=== PATIENT | male | born 1965 | race Caucasian/White ===

== ENCOUNTER 2020-08-06 06:01 | Inpatient (IN) | payer MEDICAID ==
[2020-08-06] VITALS (14 sets, daily range): BP systolic 121–183; BP diastolic 69–98
[~2020-08-06] VITALS: Ht 188 cm; Wt 85.0 kg
[2020-08-06] MEDS ORDERED: morphine 4 MG/ML inj SYRINge IV ONE (06:10)
[2020-08-06] MEDS ORDERED: ondansetron/PF 4mg/2ml inj IV ONE (06:10)
--- NOTE | 2020-08-06 06:28 | NUR ---
patient received on bed awake,awaiting for ed MD to see patient.
--- NOTE | 2020-08-06 06:37 | NUR ---
Dr. Quiros at bedside.
[2020-08-06] MEDS ORDERED: hyDROXYzine 50 mg/ml injection ***IM only IM ONE (06:50)
[2020-08-06] MEDS ORDERED: normal saline 1000ml 1,000 ML IV ONE (06:50)
[2020-08-06] MEDS ORDERED: OMEP20TA23 PO (07:17)
[2020-08-06 07:53] LABS: HEMATOCRIT 38.2 % (42.0-52.0); MEAN CORPUSCULAR VOLUME 93.3 FL (78-98); MEAN PLATELET VOLUME 7.9 FL (7.4-10.4)
[2020-08-06 07:54] LABS: MEAN CORPUSCULAR HEMOGLOBIN 31.6 PG (27.0-31.0); MEAN CORPUSCULAR HGB CONC 33.9 g/dL (33.0-36.5); PLATELET COUNT 234 X10'3 (140-440); RED CELL DISTRIBUTION WIDTH 16.5 % (11.5-14.5); WHITE BLOOD COUNT 5.8 X10'3 (4.5-11.0)
[2020-08-06 08:11] LABS: ALANINE AMINOTRANSFERASE 71 U/L (12-78); ALBUMIN 2.5 G/DL (3.4-5.0); ALKALINE PHOSPHATASE 314 IU/L (46-116); ANION GAP 7 (8-16); BILIRUBIN,TOTAL 15.7 MG/DL (0.1-1.0); BLOOD UREA NITROGEN 11 MG/DL (7-18); CALCIUM 8.7 MG/DL (8.5-10.1); CHLORIDE 102 MMOL/L (99-107); LIPASE 105 U/L (73-393); MAGNESIUM 1.8 MG/DL (1.5-2.4); SODIUM 135 MMOL/L (135-145); TOTAL CARBON DIOXIDE 25.8 MMOL/L (24-32)
[2020-08-06 08:26] LABS: ALBUMIN/GLOBULIN RATIO 0.7 (1.1-1.5); CREATININE 0.58 MG/DL (0.60-1.10); GLUCOSE 104 MG/DL (70-104); POTASSIUM 3.5 MMOL/L (3.5-5.1); eGFR > 90 ML/MIN
[2020-08-06 08:36] LABS: ASPARTATE AMINO TRANSFERASE 72 U/L (10-37)
--- NOTE | 2020-08-06 08:54 | NUR ---
patient's hr down to 40's when asleep,Dr. Cook made aware.No new order at this time.
[2020-08-06 09:06] LABS: TOTAL CELLS COUNTED 100
[2020-08-06 09:07] LABS: ANISOCYTOSIS 1+; PLATELET ESTIMATE NORMAL
[2020-08-06] MEDS ORDERED: HYDROcodone/acetaminophen 10/325mg tab PO PRN (09:10)
[2020-08-06] MEDS ORDERED: HYDROcodone/acetaminophen 5mg/325mg tablet PO PRN (09:10)
[2020-08-06] MEDS ORDERED: magnesium 4gm in 100ml NS 100 ML IV PRN (09:10)
[2020-08-06] MEDS ORDERED: morphine 2 MG/ML inj. syringe IV PRN (09:10)
[2020-08-06] MEDS ORDERED: magnesium hydroxide 30ml (MOM) UD suspension PO PRN (09:10)
[2020-08-06] MEDS ORDERED: potassium Cl 20 mEq SR tablet PO PRN ×2 (09:10)
[2020-08-06] MEDS ORDERED: metoclopramide 5 mg/ml inj IV PRN (09:10)
[2020-08-06] MEDS ORDERED: diphenhydrAMINE 25mg capsule PO PRN (09:10)
[2020-08-06] MEDS ORDERED: mag hydrox/Alum hydrox/simeth 30ml oral suspension PO PRN (09:10)
[2020-08-06] MEDS ORDERED: bisacodyl 10mg suppository rectal RC PRN (09:10)
[2020-08-06] MEDS ORDERED: acetaminophen 650mg rectal suppository RC PRN (09:10)
[2020-08-06] MEDS: normal saline 1000ml 1,000 ML IV SCH ×2 (09:10→15:59)
[2020-08-06] MEDS ORDERED: potassium CL 10mEq/100ml bag 100 ML IV PRN ×2 (09:10)
[2020-08-06] MEDS ORDERED: magnesium Cl slow-release 64mg tablet PO PRN (09:10)
[2020-08-06] MEDS ORDERED: ondansetron/PF 4mg/2ml inj IV PRN (09:10)
[2020-08-06] MEDS ORDERED: magnesium 2GM in 50ml NS 50 ML IV PRN (09:10)
[2020-08-06] MEDS ORDERED: acetaminophen 325mg tablet PO PRN ×2 (09:10)
[2020-08-06] MEDS: pantoprazole 40 MG vial IV SCH (09:32)
[2020-08-06 09:53] LABS: CLARITY,URINE SLIGHTLY CLOUDY (Clear); COLOR,URINE AMBER (Yellow); GLUCOSE, URINE 100 mg/dl (Neg); KETONES,URINE TRACE mg/dl (Neg); LEUKOCYTE ESTERASE ,URINE NEGATIVE (Neg); NITRITES, URINE NEGATIVE (Neg); OCCULT BLOOD,URINE NEGATIVE (Neg); PH,URINE 5.5 (4.8-8.0); PROTEIN,URINE 30 mg/dl (Neg)
[2020-08-06 09:58] LABS: UA COLLECTION TYPE CLN CATCH MIDSTREAM
--- NOTE | 2020-08-06 10:00 | NUR ---
Patient in room [facility]. I have received report from DAYSI Swann in ER and had the opportunity to ask questions and assume patient care.
[2020-08-06 10:15] LABS: CELLULAR CAST 0-4 /LPF (NEGATIVE); MUCUS STRANDS MODERATE /LPF (Neg); SQUAMOUS EPITHELIAL CELL,UR FEW /LPF (FEW)
[2020-08-06 10:16] LABS: BACTERIA,URINE 2+ /HPF (Neg); RBC,URINE 0-2 /HPF (0-2); WBC,URINE 0-4 /HPF (0-4)
[2020-08-06] MEDS: morphine 2 MG/ML inj. syringe IV PRN ×2 (12:16→19:53)
--- NOTE | 2020-08-06 16:09 | NUR ---
Student documentation: I have reviewed all interventions, assessments performed and documented by from [facility]. Student Medication Administration: For medications-passed in the time frame of 1200 to 1800, all medication were reviewed, dispensed, administered and documented per hospital policy by from [facility]. Addendum: 08/06/20 at 1610 by Hiral GEORGE RN Student documentation: I have reviewed all interventions, assessments performed and documented by Fabián BLACKMAN from [facility]. Student Medication Administration: For medications-passed in the time frame of 1200 to 1800, all medication were reviewed, dispensed, administered and documented per hospital policy by Fabián BLACKMAN from [facility].
[2020-08-06] MEDS ORDERED: MIDAZolam 5mg/5ml vial ONE (16:10)
[2020-08-06] MEDS ORDERED: iohexol 300 MG/1 ML 50ml polymer ONE (16:10)
[2020-08-06] MEDS ORDERED: fentaNYL/PF 50MCG/1 ML 2ML syringe ONE (16:10)
[2020-08-06] MEDS ORDERED: LIDOcaine Viscous 15ml cup ONE (16:10)
[2020-08-06] MEDS ORDERED: levoFLOXACIN-Levaquin 500mg/D5 100 ML IV ONE (16:10)
[2020-08-06] MEDS ORDERED: glucagon, human recombinant 1mg kit ONE (16:10)
--- NOTE | 2020-08-06 16:11 | NUR ---
Patient being transported down for ERCP in GI lab. Patient pleasant, stable for transfer.
[2020-08-06] MEDS ORDERED: diphenhydrAMINE 50 mg/ml inj ONE (16:15)
[2020-08-06] MEDS ORDERED: ondansetron/PF 4mg/2ml inj ONE (17:32)
--- NOTE | 2020-08-06 18:52 | NUR ---
Problems reprioritized. Patient report given, questions answered & plan of care reviewed with Carmen Morales RN.
--- NOTE | 2020-08-06 18:53 | NUR ---
Patient in room [facility]. I have received report from ELISA TAVAREZ and had the opportunity to ask questions and assume patient care.
[2020-08-06] MEDS ORDERED: heparin, porcine 5000 units/ml vial SQ SCH (20:00)
[2020-08-06] MEDS: K and/or MAG REPLACEMENT MC SCH (20:00)
[2020-08-07] VITALS: BP 157/90
[2020-08-07] MEDS: morphine 2 MG/ML inj. syringe IV PRN ×3 (00:22→08:31)
[2020-08-07] MEDS: normal saline 1000ml 1,000 ML IV SCH (04:33)
[2020-08-07 05:00] LABS: HEMATOCRIT 37.4 % (42.0-52.0); HEMOGLOBIN 12.7 g/dl (14.0-17.9)
[2020-08-07 05:02] LABS: MEAN CORPUSCULAR HEMOGLOBIN 31.8 PG (27.0-31.0); MEAN CORPUSCULAR VOLUME 93.6 FL (78-98); MEAN PLATELET VOLUME 8.6 FL (7.4-10.4); PLATELET COUNT 223 X10'3 (140-440); RED CELL DISTRIBUTION WIDTH 16.7 % (11.5-14.5); WHITE BLOOD COUNT 6.3 X10'3 (4.5-11.0)
[2020-08-07 05:28] LABS: ALANINE AMINOTRANSFERASE 56 U/L (12-78); ALBUMIN 2.2 G/DL (3.4-5.0); ALKALINE PHOSPHATASE 280 IU/L (46-116); ANION GAP 7 (8-16); ASPARTATE AMINO TRANSFERASE 68 U/L (10-37); BILIRUBIN,TOTAL 13.8 MG/DL (0.1-1.0); BLOOD UREA NITROGEN 8 MG/DL (7-18); BUN/CREATININE RATIO 14.8 (5.4-32.0); CALCIUM 8.7 MG/DL (8.5-10.1); CHLORIDE 101 MMOL/L (99-107); CREATININE 0.54 MG/DL (0.60-1.10); GLUCOSE 86 MG/DL (70-104); HDL CHOLESTEROL 9 MG/DL (35-60); LDL CHOLESTEROL 103 MG/DL (50-100); MAGNESIUM 1.7 MG/DL (1.5-2.4); SODIUM 135 MMOL/L (135-145); eGFR > 90 ML/MIN
[2020-08-07 05:35] LABS: ALBUMIN/GLOBULIN RATIO 0.6 (1.1-1.5); CHOL/HDL RATIO 15.6 (0.00-4.99); CHOLESTEROL 140 MG/DL (0-200); PHOSPHORUS 2.6 MG/DL (2.3-4.5); POTASSIUM 3.7 MMOL/L (3.5-5.1); TOTAL PROTEIN 5.6 G/DL (6.4-8.2); TRIGLYCERIDES 261 MG/DL (20-135)
--- NOTE | 2020-08-07 06:26 | NUR ---
Problems reprioritized. Patient report given, questions answered & plan of care reviewed with MARIAM TAVAREZ.
[2020-08-07 07:01] LABS: PLATELET ESTIMATE NORMAL; TOTAL CELLS COUNTED 100
[2020-08-07 07:02] LABS: ANISOCYTOSIS 1+; HYPOCHROMASIA 1+; TARGET CELLS 1+
[2020-08-07 07:31] VITALS: BP 151/69
[2020-08-07] MEDS: K and/or MAG REPLACEMENT MC SCH (08:00)
[2020-08-07] MEDS: pantoprazole 40 MG vial IV SCH (08:33)
[2020-08-07 11:00] VITALS: BP 152/79
--- NOTE | 2020-08-07 11:01 | NUR ---
Discharge noted, however HR is low and still need to talk to MD about this. Also MD has not assessed pt. today, so I will wait until he can verify that pt. is appropriate for discharge. Pt. also awaiting diet consult and SS consult.
--- NOTE | 2020-08-07 12:37 | NUR ---
Student documentation: I have reviewed all interventions, assessments performed and documented by Elisabet BLACKMAN from [facility]. Student Medication Administration: For all medication-pass' in the time frame of 7757-3792, all medications were reviewed, dispensed, administered and documented per hospital policy by Elisabet BLACKMAN from [facility].
--- NOTE | 2020-08-07 12:46 | NUR ---
PAGER ID: [phone] MESSAGE: David Ruggiero Do you want pt. NPO now- he thinks he can eat? Are you bringing pain prescription? Pt. ready to go. Anna Marie [phone]
--- NOTE | 2020-08-07 12:48 | NUR ---
Nutrition consult re: recent weight loss and diagnosis of pancreatic cancer. Patient reports chronic diarrhea and weight loss. Admitted with obstructive jaundice s/p stent placement. Provided pt with written high protein/high calorie diet education and discussed strategies to optimize nutrition while receiving cancer treatment and to mitigate weight loss. Addendum: 08/07/20 at [address] Amended: Links added.
--- NOTE | 2020-08-07 13:34 | NUR ---
PT. WAITING ON FAMILY TO TRANSPORT PT. TO [facility]. DISCUSSED WITH PT. THAT WE WILL NEED TO CALL A CAB BY 1343 IN ORDER FOR HIM TO MAKE IT TO HIS APPOINTMENT AT [facility] BY 1500.
--- NOTE | 2020-08-07 14:18 | NUR ---
Pt escorted out by this student nurse. Pt left with belongings and was picked up by family member.
--- NOTE | 2020-08-07 14:24 | NUR ---
Patient A&O with no complaints. Dc'd with all personal belongings in wheelchair accompanied by x2 Student Nurses.
== END 2020-08-07 14:18 | disposition home or self-care (01) | DRG 281 ==
LOC: ER 06:02 → ED HOLD 09:09 → SUR 3N 10:51
PROVIDERS: ADMIT Family Medicine; ATTEND Family Medicine
PROC: 0F798DZ Dilation of Common Bile Duct with Intraluminal Device, Via Natural or Artificial Opening Endoscopic (ICD-10-PCS; principal; 2020-08-06)
PROC: BF101ZZ Fluoroscopy of Bile Ducts using Low Osmolar Contrast (ICD-10-PCS; 2020-08-06)
DX: C25.9 Malignant neoplasm of pancreas, unspecified (principal); K83.1 Obstruction of bile duct; K21.9 Gastro-esophageal reflux disease without esophagitis; Z86.19 Personal history of other infectious and parasitic diseases
CPT/HCPCS: 36415; 43262; 43274; 80053; 80061; 81001; 83036; 83690; 83735; 84100; 85007; 85025; 87081; 96372; 96374; 96375; 99152; 99153; 99285; A4620; C1769; C9113; G0378; J1200; J1610; J1644; J1956; J2250; J2270; J2405; J3010; J3410; J7030; J7040; Q9967